=== PATIENT | male | born 1975 | race Caucasian/White ===

== ENCOUNTER 2021-10-16 17:01 | Emergency (ER) | payer OTHER, SELFPAY ==
[2021-10-16 17:18] VITALS: BP 144/94; PULSE 99; RESP 16; TEMP 38.6; O2SAT 98
--- NOTE | 2021-10-16 18:14 | ED.URI ---
HPI - URI/Sore Throat General Chief Complaint: Upper Respiratory Infection Stated Complaint: Fever/Body aches/congestion Time Seen by Provider: 10/16/21 18:14 Source: patient Mode of arrival: ambulatory Limitations: no limitations History of Present Illness HPI Narrative: Toe no longer this 46-year-old male with no known PMH who comes to [facility] with fever 101.5 down from 102 with sudden onset. He has been vaccinated but is questioning whether he needs to be tested for Covid will also be tested for flu and strep-since patient symptoms are within 24-hour onset will be sent to medicine drive-through for PCR Related Data Home Medications Medication Instructions Recorded Confirmed No Home Medications 10/16/21 10/16/21 Allergies Allergy/AdvReac Type Severity Reaction Status Date / Time acetaminophen [From Vicodin] Allergy Mild itching Verified 10/16/21 18:20 hydrocodone [From Vicodin] Allergy Mild itching Verified 10/16/21 18:20 Review of Systems Review of Systems: CONSTITUTIONAL: Has fever, chills, sweats. Has been to EYES: Denies visual changes, redness, discharge. ENT: Denies rhinorrhea, has congestion, has sore throat, otalgia. CARDIOVASCULAR: Denies chest pain, palpitations, edema. RESPIRATORY: Denies dyspnea, wheezing, cough GASTROINTESTINAL: Denies abdominal pain, nausea, vomiting, diarrhea. GENITOURINARY: Denies dysuria, hematuria, abnormal discharge SKIN: Denies rash or itching. NEUROLOGIC: Denies numbness, or focal weakness. PSYCHIATRIC: Denies anxiety or depression. PMFSH Comments At time of signature, I agree with nursing past medical, surgical, social and family history. There is no relevant family history pertinent to the presenting complaint. Exam Narrative: GENERAL: This is a well-nourished, well-developed patient, in mild distress. HEAD: normocephalic, atraumatic. EYES: PERRL. Sclera clear/white. Vision is grossly intact. EARS: External ears normal, auditory canals clear and without drainage, TMs normal without perforation. Hearing grossly intact. NOSE: External nose normal without nasal discharge, nares without redness, no rhinorrhea. THROAT: Mucous membranes moist, posterior pharynx NECK: Neck supple, non-tender CARDIOVASCULAR: Regular rate and rhythm without murmurs, gallops, or rubs. RESPIRATORY: Clear to auscultation. Breath sounds equal bilaterally. No wheezes, rales, or rhonchi. GASTROINTESTINAL: Abdomen soft, non-tender, SKIN: warm, intact with no suspicious lesions or rash, good texture and turgor. NEURO: awake, alert, and oriented to person, place and time. There were no obvious focal neurologic abnormalities. Steady gait EXTREMITIES: Normal range of motion. BACK: Nontender without deformity Course Course Emergency Course: Patient comes with sudden onset of high fever and malaise less than 24 hours Flu and strep test done here and will be sent to [place] drive-through for PCR for Covid even though patient is vaccinated Vital Signs Vital signs: Vital Signs Temperature 101.5 F H 10/16/21 17:18 Pulse Rate 99 10/16/21 17:18 Respiratory Rate 16 10/16/21 17:18 Blood Pressure 144/94 H 10/16/21 17:18 Pulse Oximetry 98 10/16/21 17:18 Temperature 101.5 F H 10/16/21 17:18 Pulse Rate 99 10/16/21 17:18 Respiratory Rate 16 10/16/21 17:18 Blood Pressure 144/94 H 10/16/21 17:18 Pulse Oximetry 98 10/16/21 17:18 MDM - URI/Sore Throat Lab Data Labs: Influenza A Screen Negative Reference Range: Negative Influenza B Screen Negative Reference Range: Negative Strep Screen Presumptive Negative *(Reference Range: Negative)* Discharge Plan Discharge Clinical Impression: Upper respiratory infection Qualifiers: URI type: unspecified viral URI Qualified Code(s): J06.9 - Acute uppe
== END 2021-10-16 18:45 | disposition home or self-care (01) ==
PROVIDERS: Emergency Provider Nurse Practitioner
DX: J06.9 Acute upper respiratory infection, unspecified (principal); Z86.16 Personal history of COVID-19
CPT/HCPCS: 87081; 87804; 87880; 99213; G0463

== ENCOUNTER 2022-11-27 12:05 | Emergency (ER) | payer OTHER, SELFPAY ==
[2022-11-27 12:14] VITALS: BP 144/88; PULSE 86; RESP 18; TEMP 37.1; O2SAT 99
--- NOTE | 2022-11-27 12:23 | ED.GENADULT ---
HPI - General Adult General Chief complaint: Upper Respiratory Infection Stated complaint: fever,cough History of Present Illness HPI narrative: 47 y/o male. PMHx None reported. Presents to [facility] today with acute complaints of increased nasal congestion, purulent sinus nasal discharge, cough, and 'green' phlegm production. Manifestation worsening in the past 48 hours. He reports fever at home. W/O lethargy, seizure activity, neck pain or stiffness. Denies sore throat, dysphagia. Denies chest pain, palpitations, dyspnea, edema. No hemoptysis. No GI upset, N/V. No reliefs w/home and OTC remedies. Related Data Allergies Allergy/AdvReac Type Severity Reaction Status Date / Time acetaminophen [From Vicodin] Allergy Mild itching Verified 11/27/22 12:26 hydrocodone [From Vicodin] Allergy Mild itching Verified 11/27/22 12:26 COVID-19 (SARS-CoV-2) AdvReac Other Verified 11/27/22 12:26 vaccine, maikel Review of Systems Review of Systems: CONSTITUTIONAL: Positive fever. No chills, sweats. EYES: Denies visual changes, redness, discharge. ENT: Positive rhinorrhea, congestion, sore throat. No otalgia. CARDIOVASCULAR: Denies chest pain, palpitations, edema. RESPIRATORY: Denies dyspnea, wheezing. Positive cough GASTROINTESTINAL: Denies abdominal pain, nausea, vomiting, diarrhea. All other systems have been reviewed: Unless noted remaining ROS Negative. Exam Narrative: GENERAL: This is a well-nourished, well-developed adult, in no apparent distress. HEAD: normocephalic, atraumatic. EYES: PERRL. Sclera clear/white. EARS: External ears normal, auditory canals clear and without drainage, TMs normal. NOSE: External nose normal. Positive Rhinorrhea, thick bilateral nare discharge. No obstruction, nares patent. THROAT: Mucous membranes moist, posterior pharynx erythematosus, No exudates. NECK: Neck supple, non-tender without lymphadenopathy, masses or thyromegaly. No meningeal signs. CARDIOVASCULAR: Regular rate and rhythm without murmurs, gallops, or rubs. RESPIRATORY: Upper airway rhonchi, cleared with cough. Breath sounds equal bilaterally. No wheezes, rales, retractions. GASTROINTESTINAL: Abdomen soft, non-tender, nondistended. Bowel sounds are active. No guarding. SKIN: warm, intact with no suspicious lesions or rash, good texture and turgor. NEURO: Alert, active, and age appropriate. Course Course Level of Care: Express Care Visit Vital Signs Vital signs: Vital Signs Temperature 37.1 C 11/27/22 12:14 Pulse Rate 86 11/27/22 12:14 Respiratory Rate 18 11/27/22 12:14 Blood Pressure 144/88 H 11/27/22 12:14 Pulse Oximetry 99 11/27/22 12:14 Oxygen Delivery Room Air 11/27/22 12:14 Temperature 37.1 C 11/27/22 12:14 Pulse Rate 86 11/27/22 12:14 Respiratory Rate 18 11/27/22 12:14 Blood Pressure 144/88 H 11/27/22 12:14 Pulse Oximetry 99 11/27/22 12:14 Oxygen Delivery Room Air 11/27/22 12:14 Medical Decision Making MDM Narrative Medical decision making narrative: -COVID POSITIVE. -influenza: Negative. -No hypoxemia, no distress. -Appears non-toxic. -Not requiring supplemental O2 or meeting IP inclusion. -DC to home, stable. -He reports to have had Covid earlier in 2021, and did suffer from some degree of long-haulers. For this reason, he will be stated on oral Azithromycin and Prednisone taper. Pro-Air HFA PRN. -He is already established w/OP Pulmonology MD Bethea @ [facility] (Post Covid and ALISON). He has been asked to follow-up with his specialist in 1 week. -ER W/emergent status changes. Client agrees. Differential Diagnosis Differential Diagnosis: Differential Diagnosis: Consideration of the following conditions may be warranted for the presenting problem, they are not final diagnoses: upper respiratory infection, otitis media, sinusitis, RSV viral infection, PNA, bronchitis, pharyngitis, Streptococcal sore throat, COVID-19, Influenza, and other.
== END 2022-11-27 13:03 | disposition home or self-care (01) ==
PROVIDERS: Emergency Provider Nurse Practitioner Adult Health
DX: U07.1 COVID-19 (principal)
CPT/HCPCS: 87426; 87804; 99213; C9803; G0463

== ENCOUNTER 2023-01-03 11:26 | Emergency (ER) | payer OTHER, SELFPAY ==
[2023-01-03 11:36] VITALS: BP 130/83; PULSE 82; RESP 18; TEMP 36.8; O2SAT 96
--- NOTE | 2023-01-03 12:07 | ED.GENADULT ---
HPI - General Adult General Chief complaint: Skin/Abscess/Foreign Body Stated complaint: wound check Time Seen by Provider: 01/03/23 12:08 Source: patient Mode of arrival: ambulatory Limitations: no limitations History of Present Illness HPI narrative: 47-year-old male patient presents to the [facility] with complaints of a wound to the left calf that he is concerned might be infected. Patient states he had a cyst removed about 10 days ago however about 3 days ago started getting redness around the site and states that the redness is getting bigger and spreading. Denies fevers, body aches or chills. Patient states he was putting Vaseline on it switch to antibiotic ointment the last couple of days but states it continues to worsen. Related Data Home Medications Medication Instructions Recorded Confirmed codeine 10 mg-guaifenesin 100 mg/5 ml 01/03/23 mL oral liquid cyclobenzaprine 10 mg tablet mg 01/03/23 Allergies Allergy/AdvReac Type Severity Reaction Status Date / Time acetaminophen [From Vicodin] Allergy Mild itching Verified 11/27/22 12:26 hydrocodone [From Vicodin] Allergy Mild itching Verified 11/27/22 12:26 COVID-19 (SARS-CoV-2) AdvReac Other Verified 11/27/22 12:26 vaccine, maikel Review of Systems Review of Systems: CONSTITUTIONAL: Denies fever, chills, or sweats. EYES: Denies visual changes, redness, or discharge. ENT: Denies rhinorrhea, congestion, sore throat, or otalgia. CARDIOVASCULAR: Denies chest pain, palpitations, or edema. RESPIRATORY: Denies cough or dyspnea. GASTROINTESTINAL: Denies abdominal pain, nausea, vomiting, or diarrhea. GENITOURINARY: Denies dysuria or hematuria. SKIN: Denies rash or itching. Positive wean to left calf times 10 days MUSCULOSKELETAL: Denies back pain, joint pain, or myalgia. NEUROLOGIC: Denies headache, numbness, or weakness. PSYCHIATRIC: Denies anxiety or depression. [facility] Past Medical History Medical History (Updated 01/03/23 @ 12:18 by AWILDA Merida) No significant past medical history Comments At the time of my signature I agree with nursing past medical history, surgical, social, and family history. There is no relevant family history pertinent to the presenting complaint. Exam Narrative: GENERAL: Well-appearing, well-nourished, and in no acute distress. HEAD: Normocephalic, atraumatic. EYES: PERRLA and EOMI. ENT: Nares clear, no rhinorrhea or epistaxis. Mucous membranes moist. NECK: Supple. No lymphadenopathy CHEST: Clear to auscultation. No respiratory distress. HEART: Regular rate and rhythm. No murmur heard. Normal peripheral pulses. ABDOMEN: Soft, nontender, nondistended, normal active bowel sounds. EXTREMITIES: Normal range of motion. No edema. SKIN: Warm, dry, no rash. patient has approximately 2 cm x 2 cm reddened area around where his cyst removal was on the left calf. Patient does have 1 suture intact to the area which patient states his patient care provider will remove on . No drainage noted to the site. NEURO: No focal deficits. Alert and oriented x3. Course Course Level of Care: Express Care Visit Vital Signs Vital signs: Vital Signs Temperature 36.8 C 01/03/23 11:36 Pulse Rate 82 01/03/23 11:36 Respiratory Rate 18 01/03/23 11:36 Blood Pressure 130/83 01/03/23 11:36 Pulse Oximetry 96 01/03/23 11:36 Oxygen Delivery Room Air 01/03/23 11:36 Temperature 36.8 C 01/03/23 11:36 Pulse Rate 82 01/03/23 11:36 Respiratory Rate 18 01/03/23 11:36 Blood Pressure 130/83 01/03/23 11:36 Pulse Oximetry 96 01/03/23 11:36 Oxygen Delivery Room Air 01/03/23 11:36 Vital signs reviewed The patient has been informed that they may have pre-hypertension or Hypertension based on a BP reading in the department. I recommend that the patient call the primary care provider listed on their discharge instructions or a physician of their choice this week to arrange follow up for further evaluation of p
== END 2023-01-03 12:20 | disposition home or self-care (01) ==
PROVIDERS: Emergency Provider Nurse Practitioner Family
DX: L03.116 Cellulitis of left lower limb (principal)
CPT/HCPCS: 99213; G0463